=== PATIENT | female | born 1980 | race Asian ===

== ENCOUNTER 2021-06-17 06:27 | Day surgery (SDC) | payer OTHER, SELFPAY ==
[~2021-06-17] VITALS: Ht 162.6 cm; Wt 60.3 kg
[2021-06-17] MEDS ORDERED: METOCLOPRAMIDE HCL 10 MG/2 ML VIAL IVP ONE (06:28)
[2021-06-17] MEDS ORDERED: LR 1,000 ML IV.SOLN IV ONE ×2 (06:28→09:13)
[2021-06-17] MEDS ORDERED: MORPHINE SULFATE 10 MG/ML VIAL IVP ONE (06:28)
[2021-06-17] MEDS ORDERED: MORPHINE 4 MG INJ. 4 MG/ML VIAL IVP ONE (06:28)
[2021-06-17] MEDS ORDERED: METHYLERGONOVINE MALEATE 0.2 MG/ML AMP IM ONE (06:28)
[2021-06-17] MEDS ORDERED: CLINDAMYCIN PHOSPHATE 900 mg/50mL D5W IV ONE (06:28)
[2021-06-17] MEDS ORDERED: ONDANSETRON HCL 4 MG/2 ML VIAL IVP ONE ×2 (06:28→09:13)
[2021-06-17] MEDS ORDERED: MIDAZOLAM HCL 5 MG/5 ML VIAL IVP ONE (06:28)
[2021-06-17] MEDS ORDERED: NS IRRIG SOLN 1000 ML IR ONE ×3 (06:28→09:13)
[2021-06-17] MEDS ORDERED: LIDOCAINE 2%, 20 ML MDV INJ ONE (06:28)
[2021-06-17 07:35] LABS: HCG,QUAL RESULT NEGATIVE (NEGATIVE)
[2021-06-17] MEDS ORDERED: PROPOFOL 200MG/ 20ML VIAL (DIPRIVAN) IV ONE (09:13)
[2021-06-17] MEDS ORDERED: SEVOFLURANE 15 MIN GAS INH ONE (09:13)
[2021-06-17] MEDS ORDERED: fentaNYL CITRATE 250 MCG/5 ML AMP IV ONE (09:13)
[2021-06-17] MEDS ORDERED: NS 1000 ML IV.SOLN IV ONE (09:13)
[2021-06-17] MEDS ORDERED: KETOROLAC TROMETHAMINE 30 MG VIAL IVP PRN (09:45)
[2021-06-17] MEDS ORDERED: ACETAMINOPHEN 325 MG TABLET PO ONE (09:45)
[2021-06-17] MEDS ORDERED: HYDROmorphone 1 MG/ML INJ. CARTRIDGE IVP PRN (09:45)
[2021-06-17] MEDS ORDERED: ONDANSETRON HCL 4 MG/2 ML VIAL IVP PRN (09:45)
[2021-06-17] MEDS ORDERED: IBUPROFEN 800 MG TABLET PO PRN ×2 (10:15)
[2021-06-17] MEDS ORDERED: ONDANSETRON HCL 4 MG/2 ML VIAL IM PRN (10:15)
[2021-06-17] MEDS ORDERED: OXYCODONE/ACETAMINOPHEN 5-325 TABLET PO PRN ×4 (10:15)
[2021-06-17 14:42] VITALS: BP_SYST 109
== END 2021-06-17 12:20 | disposition home or self-care (01) ==
LOC: SMU 06:27 → SDS 06:27 → SMU 13:16 → SDS 14:42 → SMU 15:16
PROVIDERS: ATTEND Obstetrics & Gynecology
DX: N92.0 Excessive and frequent menstruation with regular cycle (principal); D25.9 Leiomyoma of uterus, unspecified; Z80.0 Family history of malignant neoplasm of digestive organs; Z20.822 Contact with and (suspected) exposure to COVID-19; Z79.899 Other long term (current) drug therapy
CPT/HCPCS: 36415; 58558; 84703; 87426; 88305; C1819; J2001; J2270; J2405; J2704; J3010; J7030; J7120; U0003; J2210; J2250; J2765; J3490